=== PATIENT | male | born 1990 | race Caucasian/White ===

== ENCOUNTER 2018-02-23 12:31 | Emergency (ER) | payer MEDICAID ==
[2018-02-23] MEDS: HYDROCODONE/APAP (5/325) TAB PO (18:16)
== END 2018-02-23 18:43 | disposition home or self-care (01) ==
LOC: FTE 12:31
DX: S59.901A Unspecified injury of right elbow, initial encounter (principal); S33.5XXA Sprain of ligaments of lumbar spine, initial encounter; F17.210 Nicotine dependence, cigarettes, uncomplicated; W01.0XXA Fall on same level from slipping, tripping and stumbling without subsequent striking against object, initial encounter
CPT/HCPCS: 29105; 72100; 72131; 73080-RT; 99284-25

== ENCOUNTER 2019-01-13 14:23 | Emergency (ER) | payer MEDICAID ==
[2019-01-13] MEDS: ACETAMINOPHEN 500 MG TAB PO (15:15)
[2019-01-13 15:20] LABS: URINE BLOOD (Dip) POC Negative (NEGATIVE); URINE GLUCOSE (Dip) POC Negative (NEGATIVE); URINE KETONES (Dip) POC Negative (NEGATIVE); URINE LEUKOCYTE EST (Dip) POC Negative (NEGATIVE); URINE NITRITE (Dip) POC Negative (NEGATIVE); URINE TOTAL PROTEIN POC Trace (NEGATIVE)
[2019-01-13 15:20] LABS: URINE PH (Dip) POC 5.5 (5.0-8.5)
== END 2019-01-13 15:37 | disposition home or self-care (01) ==
LOC: FTE 14:23
DX: B34.9 Viral infection, unspecified (principal); F17.210 Nicotine dependence, cigarettes, uncomplicated
CPT/HCPCS: 81003; 81025; 99282